=== PATIENT | female | born 2000 | race Two or more races ===

== ENCOUNTER 2021-01-10 14:23 | Emergency (ER) | payer MEDICAID ==
[~2021-01-10] VITALS: Ht 147.3 cm; Wt 49.9 kg
--- NOTE | 2021-01-10 14:34 | NUR ---
TO ER BED 4, C/O ON & OFF ABDOMINAL PAIN X 1 YEAR, USUALLY DURING HER PERIOD,TREATED WITH ORAL CONTRACEPTIVE BY PMD, AAOX4, BREATHING EVEN AND NON LABORED, CHANGED TO A GOWN
--- NOTE | 2021-01-10 14:35 | NUR ---
TO ER BED 4 FOR MD MARIE
--- NOTE | 2021-01-10 14:45 | NUR ---
DR LIN AT BEDSIDE WITH FEMALE NURSE
--- NOTE | 2021-01-10 14:56 | NUR ---
DR MYERS SPEAKING WITH DR LIN
[2021-01-10 15:17] LABS: BASOPHILS % (AUTO) 0.2 % (0.0-2.0); HEMATOCRIT 40 % (33-45); HEMOGLOBIN 13.3 g/dL (11.5-14.8); LYMPHOCYTES # (AUTO) 1.5 K/uL (0.8-4.8); LYMPHOCYTES % (AUTO) 28.2 % (20.0-44.0); MEAN CORPUSCULAR HGB CONC 34 g/dl (31.0-36.0); MEAN CORPUSCULAR VOLUME 88 fL (82-100); MONOCYTES # (AUTO) 0.5 K/uL (0.1-1.30); MONOCYTES % (AUTO) 9.7 % (2.0-12.0); NEUTROPHILS # (AUTO) 3.1 K/uL (1.8-8.9); NEUTROPHILS % (AUTO) 56.9 % (43.0-81.0); PLATELET COUNT (AUTO) 296 K/uL (150-450); RED BLOOD CELL COUNT(AUTO) 4.48 MIL/uL (4.0-5.2); WHITE BLOOD COUNT (AUTO) 5.4 K/uL (4.3-11.0)
[2021-01-10 15:29] LABS: CALCIUM, SERUM 8.8 mg/dL (8.5-10.1); CREATININE 0.5 mg/dL (0.6-1.3); POTASSIUM 3.3 mmol/L (3.5-5.1)
[2021-01-10 15:35] LABS: ALBUMIN 4.2 g/dL (3.4-5.0); BILIRUBIN,DIRECT 0.1 mg/dL (0.0-0.2); BILIRUBIN,TOTAL 0.6 mg/dL (0.2-1.0); TOTAL PROTEIN, SERUM 8.2 g/dL (6.4-8.2)
[2021-01-10 16:28] VITALS: BP 109/61
== END 2021-01-10 16:31 | disposition home or self-care (01) ==
LOC: ER 14:35
DX: N91.2 Amenorrhea, unspecified (principal); R14.0 Abdominal distension (gaseous)
CPT/HCPCS: 36415; 80048-TC; 80076-TC; 83690-TC; 84702-TC; 85025-TC

== ENCOUNTER 2024-12-03 06:06 | Emergency (ER) | payer MEDICAID ==
[~2024-12-03] VITALS: Ht 149.9 cm; Wt 74.8 kg
[2024-12-03] MEDS ORDERED: PANTOPRAZOLE 40 MG VIAL ONE (06:34)
[2024-12-03 06:35] LABS: PLATELET COUNT (AUTO) 297 K/uL (150-450); RED BLOOD CELL COUNT(AUTO) 4.48 MIL/uL (4.0-5.2); RED CELL DISTRIBUTION WIDTH 13.2 % (11.5-15.0); WHITE BLOOD COUNT (AUTO) 7.6 K/uL (4.3-11.0)
[2024-12-03] MEDS ORDERED: MAG HYDROX/AL HYDROX/SIMETH 30 ML UDC ONE (06:35)
[2024-12-03 06:43] LABS: CALCIUM, SERUM 8.6 mg/dL (8.5-10.1); CREATININE 0.6 mg/dL (0.6-1.3); SODIUM SERUM 140.0 mmol/L (136-145); UREA NITROGEN, BLOOD 15.0 mg/dL (7-18)
[2024-12-03] MEDS: MAG HYDROX/AL HYDROX/SIMETH 30 ML UDC PO ONE (06:48)
[2024-12-03] MEDS: IV NS 0.9% 1,000 ML BAG IV ONE (06:48)
[2024-12-03] MEDS: PANTOPRAZOLE 40 MG VIAL IV ONE (06:48)
[2024-12-03 06:49] LABS: ASPARTATE AMINOTRANSFERASE 17.0 U/L (15-37); TOTAL PROTEIN, SERUM 7.4 g/dL (6.4-8.2)
[2024-12-03] MEDS ORDERED: KETOROLAC TROMETHAMINE 15 MG/ML VIAL ONE (07:09)
[2024-12-03] MEDS ORDERED: IV NS 0.9% 250 ML IV ONE (07:38)
[2024-12-03] MEDS ORDERED: IOHEXOL-300 100 ML VIAL IV ONE (07:38)
[2024-12-03] MEDS: KETOROLAC TROMETHAMINE 15 MG/ML VIAL IV ONE (07:50)
[2024-12-03 08:28] LABS: APPEARANCE,URINE CLEAR (CLEAR); BLOOD, URINE NEGATIVE Ery/uL (NEGATIVE); LEUKOCYTE ESTERASE ,URINE NEGATIVE (NEGATIVE); NITRITE, URINE NEGATIVE (NEGATIVE); UGLUCOSE NEGATIVE (NEGATIVE)
[2024-12-03 08:34] LABS: PREGNANCY TEST URINE QUAL NEGATIVE (NEGATIVE)
[2024-12-03] MEDS ORDERED: SULI200T4 PO (08:37)
[2024-12-03 08:57] VITALS: BP 130/80; TEMP 98.5; O2SAT 100
== END 2024-12-03 08:50 | disposition home or self-care (01) ==
LOC: ER 06:08
DX: K80.50 Calculus of bile duct without cholangitis or cholecystitis without obstruction (principal); R10.13 Epigastric pain; R10.2 Pelvic and perineal pain
CPT/HCPCS: 99285; 74177; 96374; 76705; 71045; 96361; 85025; 80048; 83690; 80076; 81003; 36415; 84702; 96372; 84703 ×2; J1885; J7030; J7050; J2470; Q9967